=== PATIENT | female | born 1940 | race Caucasian/White ===

== ENCOUNTER → 2023-09-14 12:29 | Outpatient (REF) | payer MEDICARE, SELFPAY | LOC: RAD 12:29 | PROVIDERS: ATTENDING PHYSICIAN Internal Medicine Critical Care Medicine; FAMILY PHYSICIAN Internal Medicine | DX: R91.1 Solitary pulmonary nodule (principal) | CPT/HCPCS: 71046 ==

== ENCOUNTER 2024-09-17 15:57 | Inpatient (IN) | payer MEDICARE, SELFPAY ==
[2024-09-17] VITALS (10 sets, daily range): BP systolic 118–155; BP diastolic 66–105; BMI 20.5; BMI 18.5
--- NOTE | 2024-09-17 10:13 | ED.GENMED ---
History of Present Illness
General
Chief Complaint: Musculo-Skeletal Complaint
Source: patient
Time Seen by Provider: 09/17/24 10:02
History of Present Illness
History of Present Illness:
84yoF with a history of atrial fibrillation, hypertension, hyperlipidemia presenting via EMS for evaluation after a fall. Patient reports getting out of bed around midnight last night to turn off the heating pad. She is not sure what happened but
she fell on her right hip/leg. She denies any head strike or LOC. Patient was unable to get off the floor all night and her neighbor found her today when she was yelling out for help. She currently complains of right hip and thigh pain. She
lives alone in an apartment and works as a history faculty member. She ambulates independently.
Past History
Past History
ED Past Medical History: Arrthythmia (Atrial flutter), Cancer (esophogeal s/p chemom/XRT 2016), COPD, HTN and Hypercholesterolemia
ED Past Surgical History: Other (Endoscopy)
Social History
Tobacco: Smoker
Alcohol: Occasional
Drug: None
Personal: Other
Living: with family
Employment: Retired
Family History
Family History: Hypertension
Phy Exam
Physical Exam
Physical Exam:
Appears uncomfortable, non-toxic
General Physical Exam
General Presentation: well appearing
General age: appears stated age
General Skin: warm and dry
General Habitus: normal
General Mental: alert
ENT Exam
ENT Exam: normocephalic
Pulmonary Exam
Pulmonary Exam: no respiratory distress
Neurological Exam
Neurological Exam: alert
Kira Coma Scale
Eye Opening: Spontaneous
Verbal Response: Oriented
Motor Response: Obeys Commands
GCS Total Score: 15
Musculoskeletal Exam
Musculoskeletal Exam: other (R hip: Swelling noted in thigh with abrasions to lateral hip. Unable to range hip joint. Cap refill < 2 seconds in distal extremity.)
Skin Exam
Skin Exam: normal color and warm/dry
Psychiatric Exam
Psychiatric Exam: normal mood/affect
Course
Orders/Labs/Results
Orders:
Orders
09/17/24 10:02
CR Hip - RT w/wo Pel 2-3 Vw* Urgent
Comment:
Reason For Exam: fall
Include a pelvis x-ray?: Yes
Femur, Right 2 View [CR Femur - Right Min 2 Vw] Urgent
Comment:
Reason For Exam: fall
09/17/24 10:07
Complete Blood Count/With Diff Urgent
Comprehensive Metabolic Panel Urgent
Creatine Phosphokinase Urgent
09/17/24 10:12
CT Cervical Spine W/o Iv Contr Urgent
Comment:
Reason For Exam: unwitnessed fall
CT Head W/o Iv Contrast Urgent
Comment:
Reason For Exam: unwitnessed fall
Acetaminophen 1000MG/100Ml [Ofirmev] 1,000 mg in 100 ml IV ONCE
Acetaminophen IV Indication:: ED Narcotic Naive Pt-ONCE
09/17/24 10:13
CR Chest Single View Urgent
Reason For Exam: fall
09/17/24 13:03
0.9% Sodium Chloride 500 ml [Nss] 500 ml IV BOLUS
09/17/24 13:15
Lidocaine [Lidocaine 4% Patch] 1 patch TOPICAL DAILY
Apply Lidocaine patch(s) to:: right hip
Abnormal Lab Results
09/17/24
10:07
WBC 13.7 H 10^3/uL
(4.8-10.8)
Abs Immat Gran (auto) 0.1 H 10^3/uL
(0-0.05)
Absolute Neuts (auto) 12.5 H 10^3/uL
(1.4-6.5)
Absolute Lymphs (auto) 0.5 L 10^3/uL
(1.2-3.4)
Neutrophils % 91.1 H %
(42.2-75.2)
Lymphocytes % 3.7 L %
(20.5-51.1)
Chloride 108 H mmol/L
(98-107)
Creatinine 0.5 L mg/dL
(0.6-1.0)
Glucose 145 H mg/dl
(70-99)
Creatine Kinase 316 H U/L
(30-135)
09/17/24 10:07
09/17/24 10:07
Vital Signs
Initial and Last Documented VS:
Initial Vital Signs
Temp Pulse Resp BP Pulse Ox
97.3 F 87 18 155/87 97
09/17/24 09:55 09/17/24 09:55 09/17/24 09:55 09/17/24 09:55 09/17/24 09:55
Last Documented Vital Signs
Temp Pulse Resp BP Pulse Ox
98.2 F 92 16 148/83 98
09/17/24 16:00 09/17/24 16:00 09/17/24 16:00 09/17/24 16:00 09/17/24 16:00
MDM/Problems Addressed
Differential Diagnosis Includes:
84yoF here with R hip/thigh pain after a fall in the middle of the night. She was unable to get off the floor and was on the ground for about 8 hours before being found. Swelling noted in R thigh. RLE is neurovascularly intact. Differential
diagnosis includes but is not limited to: Fracture, dislocation, soft tissue injury, rhabdomyolysis
Initial ED plan: Check CBC, CMP, CK, R hip/femur x-rays, and CT head and cervical spine. IV Tylenol for pain (patient declines analgesics).
*Critical Care Note
Total Time (30-74mins, 75-104mins- exclusive of procedures): Not Applicable
Update Note
Update Note:
X-rays confirm an intertrochanteric fracture. Orthopedics notified and patient admitted for further management.
ED Attending Note
-
Portions of this chart may have been created with voice recognition software.� Occasional wrong word or��sound alike� substitutions may have occurred due to the inherent limitations of voice recognition software.
Discharge Plan
Departure
Patient Disposition: Admit
Date of Disposition: 09/17/24
Time of Disposition: 12:50
Presentation/result/management discussed w/ accepting MD/DO: Hospitalist
Discharge Problem:
Closed fracture of right hip
Interventions
Interventions:
*Risk Screen - Suicide Last Done: 09/17/24 09:55
*General Assessment Last Done: 09/17/24 09:55
*Neglect/Abuse Screening Last Done: 09/17/24 09:55
*ED COVID-19 Vaccine History Last Done: 09/17/24 10:03
*Nursing Disposition Last Done: 09/17/24 16:04
ED-Musculoskeletal Assessment Last Done: 09/17/24 10:10
ED- Neurological Assessment Last Done: 09/17/24 10:10
ED-Skin Assessment Last Done: 09/17/24 10:10
Discharge Date and Time
Discharge Date/Time: 09/17/24 15:00
[2024-09-17] MEDS: OFIRMEV 100 IV (10:18)
[2024-09-17 10:28] LABS: % Basophils 0.2 % (0-2); % Eosinophils 0.1 % (0-6); % Immature Granulocytes 0.4 % (0-0.5); % Lymphocytes 3.7 % (20.5-51.1); % Monocytes 4.5 % (1.7-9.3); % Neutrophils 91.1 % (42.2-75.2); Absolute Immature Granulocytes 0.1 10^3/uL (0-0.05); Absolute Lymphocytes 0.5 10^3/uL (1.2-3.4); Absolute Monocytes 0.6 10^3/uL (0.1-0.6); Absolute Neutrophils 12.5 10^3/uL (1.4-6.5); Hematocrit 38.8 % (37.0-47.0); Hemoglobin 13.3 g/dL (12.0-16.0); Mean Corp Hgb Conc. 34.3 g/dL (33.0-37.0); Mean Corpuscular Hgb 30.9 pg (27.0-31.0); Mean Platelet Volume 8.8 fL (7.4-10.4); Nucleated Red Blood Cells % 0 %; Platelet Count 239 10^3/uL (130-400); Red Blood Cell Count 4.31 10^6/uL (4.20-5.40); Red Cell Dist. Width 13.1 % (11.5-14.5); White Blood Cell Count 13.7 10^3/uL (4.8-10.8)
[2024-09-17 10:46] LABS: ALT (SGPT) 25 U/L (0-35); AST (SGOT) 31 U/L (14-36); Albumin 4.3 g/dl (3.5-5.0); Alkaline Phosphatase 85 U/L (38-126); Blood Urea Nitrogen 16 mg/dl (7-17); Calcium 9.2 mg/dl (8.4-10.2); Carbon Dioxide 28 mmol/L (22-30); Chloride 108 mmol/L (98-107); Creatine Phosphokinase 316 U/L (30-135); Estimated Creatinine Clearance 61 ml/min; Glucose 145 mg/dl (70-99); Potassium 4.3 mmol/L (3.5-5.1); Sodium 140 mmol/L (135-145); Total Bilirubin 0.7 mg/dl (0.2-1.3); Total Protein 7.1 g/dl (6.3-8.2); eGFR > 60.00
--- NOTE | 2024-09-17 15:45 | PTCARENOTE ---
Patient admitted from ED during [facility] downtime. VSS. Patient c/o of R hip pain. Pt only willing to take Tylenol with codeine. made aware. Medication administered. See JUN. Patient arrived from ED with R hip lidocaine patch. Call taylor within
reach. Patient NPO at [place] for ORIF
--- NOTE | 2024-09-17 15:57 | HPS.HSE ---
Family Physician
-
Family Physician: Lucie Casiano
Chief Complaint
-
Right Hip Pain
History of Present Illness
Ms. Salvador Pathak is a 84 yo woman with hx afib on Eliquis, essential HTN, HLD presents to the ER post fall.
Patient went to confirm her heating pack was unplugged in middle of the night.� She states she fell and landed on her right hip.� She reports she eats dinner in that area and may have slipped on something that spilled.� She was on the ground for 8
hours, yelled out and neighbor eventually heard her.� No chest pain or palpitations preceding event.� She did not hit her head.� Had resulting pain in right hip.
No recent fevers/chills.� No chest pain.� She has chronic SOB from COPD which his improved on home inhalers.� No abdominal pain.� No nausea/vomiting/diarrhea.� She is eating and drinking OK, has not yet eaten today and is hungry.
She takes a lower dose of Eliquis at night (self-prescribed) because she had in issue with bruising.� She plans to follow up with her fur dry cleaner.�
Medical History
Past Medical History
Past Medical History: Reports Arrhythmia (atrial fibrillation), HTN and Hypercholesterolemia
Past Surgical History: Reports Other
Social History
Tobacco: Former Smoker
Alcohol: None
Family History
Family History: Not pertinent
Allergies / Home Medications
Allergies reflects when Allergies were last updated in [facility].
Home Medications with original date entered in [facility]
Allergy/Medication List:
Allergies
Allergy/AdvReac Type Severity Reaction Status Date / Time
hydromorphone (From Dilaudid) Allergy Unknown Verified 09/17/24 09:54
Home Medications
lorazepam 0.5 mg tablet 0.5 mg PO BIDPRN PRN anxiety 09/10/16
apixaban 2.5 mg tablet (Eliquis) 1.25 mg PO QPM 09/17/24
apixaban 2.5 mg tablet (Eliquis) 2.5 mg PO DAILY 09/17/24
fluticasone propionate 115 mcg-salmeterol 21 mcg/actuation HFA inhaler (Advair HFA) 2 puff inhalation R BID 09/17/24
magnesium oxide 400 mg PO QPM 09/17/24
temazepam 30 mg capsule 30 mg PO HS 09/17/24
verapamil 40 mg tablet 40 mg PO BID 09/17/24
vitamins A,C,I-vpam-qpwuhy 2,148 mcg-113 mg-45 mg-17.4 mg tablet (PreserVision AREDS) 1 tab PO DAILY 09/17/24
Review of Systems
-
History Source: Patient
A 12 point ROS was completed and negative except as noted: Yes
Physical Exam
Vital Signs
Vital Signs
Temp Pulse Resp BP Pulse Ox
97.3 F 79 17 122/78 96
09/17/24 09:55 09/17/24 10:30 09/17/24 10:30 09/17/24 12:00 09/17/24 11:15
Physical Exam
General: No Apparent Distress
HEENT: PERRLA
Respiratory: Clear; No Wheezes
Cardiac: S1/S2 and Regular Rhythm
GI: Soft, Non Tender and Non Distended
Musculoskeletal: No Edema and Other (mild swelling/tenderness along right hip/groin)
Skin: Warm and Dry; No Rash
Neuro: AO x 3
Psych: Calm
Laboratory Results
-
09/17/24 10:07
09/17/24 10:07
Laboratory Results
Total Bilirubin 0.7 mg/dl (0.2-1.3) 09/17/24 10:07
AST 31 U/L (14-36) 09/17/24 10:07
ALT 25 U/L (0-35) 09/17/24 10:07
Alkaline Phosphatase 85 U/L (38-126) 09/17/24 10:07
Data Reviewed
-
Diagnostic Radiology: Report Reviewed by me
Lab Data: Labs Reviewed by me
Impression/Plan
-
IMAGING:
Hip X-Ray:
IMPRESSION: Comminuted angulated acute intertrochanteric right femoral fracture as above.
Cervical Spine CT:
IMPRESSION:
Degenerative changes.
No findings to suggest recent cervical spine fracture.
HEAD CT
IMPRESSION:
No acute intracranial abnormalities.
Findings again seen compatible with diffuse cortical atrophy with nonspecific white matter changes as described above.
Ms. Salvador Pathak is a 84 yo woman with hx afib on Eliquis, essential HTN, HLD presents to the ER post fall found to have right hip fracture.
Right Hip Fracture
-����� Admit to med/surg
-����� Patient has pain relief with 1G Tylenol; will continue 650mg PO q4 hours standing.� She reports a bad reaction to opiates in past (anxiety)
-����� Lidocaine Patch
-����� Regular diet, NPO after MN for OR planned for tomorrow (discussed with Dr. Elkins)
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
-����� SCD�s for DVT PPx pre-op
-����� Ordoñez karen-op risk score = 0.2%; benefits of surgery outweigh risks, patient medically optimized for surgery
-�����
Atrial Flutter, paroxysmal
-����� Currently in NSR
-����� Patient self-decreased Eliquis dosing in evening given bruising.� Education provided on importance of stroke prevention and she is willing to take 2.5mg dosing post-op for DVT prevention
-����� Hold Eliquis pre-op, resume when cleared by ortho
-����� CARRY OUT CLERK AND SHELF STOCKER Verapamil
-�����
Anxiety
-CARRY OUT CLERK AND SHELF STOCKER Temazepam qhs
-CARRY OUT CLERK AND SHELF STOCKER Lorazepam PRN
HTN
-CARRY OUT CLERK AND SHELF STOCKER Verapamil
DVT PPx: SCD
DNR � discussed on admission
--- NOTE | 2024-09-17 16:03 | DOWNTIME ---
There was a [employer] Downtime on 09/17/2024 from 1230 to 09/17/2024 at 1550. Downtime documentation of patient's care, including medication administrations, has been reconciled in the electronic record per guidelines. Refer to the
patient's paper chart under the miscellaneous tab to see printed paper medication records and downtime forms.
[2024-09-17] MEDS: TYLENOL 325 MG PO (16:23)
[2024-09-17] MEDS: CODEINE 15 MG PO (16:23)
[2024-09-17] MEDS: LIDOCAINE 4% PATCH 1 PATCH TOPICAL (16:26)
[2024-09-17] MEDS: COLACE 100 MG PO (20:13)
[2024-09-17] MEDS: SENOKOT 17.2 MG PO (20:13)
[2024-09-17] MEDS: ISOPTIN 40 MG PO (20:13)
[2024-09-17] MEDS: NON-FORMULARY ITEM 1 UNIT INH (20:16)
[2024-09-17] MEDS: TYLENOL #3 1 TABLET PO (20:20)
[2024-09-17] MEDS: RESTORIL 30 MG PO (21:59)
[2024-09-17] MEDS: ROXICODONE 5 MG PO (22:08)
[2024-09-18] VITALS (13 sets, daily range): BP systolic 105–130; BP diastolic 52–75
[2024-09-18] MEDS: TYLENOL #3 1 TABLET PO ×2 (06:02→10:56)
[2024-09-18] MEDS: NON-FORMULARY ITEM 1 UNIT INH (07:22)
[2024-09-18 07:29] LABS: Hematocrit 33.7 % (37.0-47.0); Hemoglobin 11.4 g/dL (12.0-16.0); Mean Corp Hgb Conc. 33.8 g/dL (33.0-37.0); Mean Corpuscular Hgb 30.9 pg (27.0-31.0); Mean Corpuscular Volume 91.3 fL (81.0-99.0); Mean Platelet Volume 9.5 fL (7.4-10.4); Platelet Count 216 10^3/uL (130-400); Red Blood Cell Count 3.69 10^6/uL (4.20-5.40); Red Cell Dist. Width 13.3 % (11.5-14.5); White Blood Cell Count 8.3 10^3/uL (4.8-10.8)
--- NOTE | 2024-09-18 07:52 | W.PN.UPDATE ---
Addendum entered and electronically signed by Pedro Elkins MD 09/18/24 16:10:
I evaluated the patient at bedside and agree with consultation note dated 1550. 84-year-old female who lives independently as a community ambulator without an assist device sustained a fall 1 day ago in her apartment. She was down for about 8
hours until a neighbor helped her. She had right thigh pain and difficulty weightbearing. She was brought to the emergency department where she was noted to have a proximal femur fracture. She denies hip pain or thigh pain prior to the fall. On
exam, the patient was in bed awake and alert, anxious about surgery. Skin was intact with some ecchymosis medially. Motor and sensation intact distally.
I discussed with the patient treatment options for the right hip. We discussed right hip fracture ORIF with cephalomedullary nail. We discussed the recovery process and follow-up timeline. Shared decision was to proceed with right hip fracture
ORIF. All questions were answered.
Original Note:
Update Note
Progress Note Update
For orthopedic consult dictated:
Dx: Right hip intertrochanteric fracture
Plan: Patient is scheduled to undergo open reduction internal fixation right intertrochanteric fracture later this afternoon. Last dose of Eliquis July 17, 2024 in the evening. She will remain n.p.o. and Ancef on-call to the operating room.
Surgical and blood consent signed by patient. Surgical location marked. Reviewed surgery, risk and potential complications as well as postoperative course with the patient and her daughter (Lucie Westbrook). All questions were answered. On the
right hip x-ray I am concerned she might have fracture just superior to the acetabulum so I am going to order CT scan to rule out.
Review CT pelvis-09/18/24 1030amCT scan of the pelvis was performed this morning. Comminuted mildly displaced intertrochanteric fracture proximal humerus noted with hematoma. L5 compression fracture noted. CT scan of the pelvis was performed this
morning. Comminuted mildly displaced intertrochanteric fracture proximal humerus noted with hematoma. L5 compression fracture noted. No pelvis fracture identified on study.
[2024-09-18 08:15] LABS: Blood Urea Nitrogen 12 mg/dl (7-17); Calcium 8.9 mg/dl (8.4-10.2); Carbon Dioxide 25 mmol/L (22-30); Chloride 108 mmol/L (98-107); Creatine Phosphokinase 168 U/L (30-135); Estimated Creatinine Clearance 56 ml/min; Glucose 130 mg/dl (70-99); Potassium 4.1 mmol/L (3.5-5.1); Sodium 138 mmol/L (135-145); eGFR > 60.00
[2024-09-18] MEDS: ISOPTIN 40 MG PO ×2 (08:29→20:20)
[2024-09-18] MEDS: LIDOCAINE 4% PATCH 1 PATCH TOPICAL (08:30)
[2024-09-18] MEDS: COLACE PO ×2 (08:32→20:18)
[2024-09-18] MEDS: SENOKOT PO ×2 (08:32→20:19)
--- NOTE | 2024-09-18 09:25 | W.PN.HOSP.TC ---
Today's Communication/Plan
-
.
Assessment / Plan
Assessment / Plan
Physical Exam
General: No Apparent Distress
HEENT: PERRLA
Respiratory: Clear; No Wheezes
Cardiac: S1/S2 and Regular Rhythm
GI: Soft, Non Tender and Non Distended
Musculoskeletal: No Edema and Other (mild swelling/tenderness along right hip/groin)
Skin: Warm and Dry; No Rash
Neuro: AO x 3
Psych: Calm
Right Hip Fracture
-����� Patient has pain relief with 1G Tylenol; will continue 650mg PO q4 hours standing.� She reports a bad reaction to opiates in past (anxiety)
-����� Lidocaine Patch
-����� Regular diet, NPO after MN for OR planned for tomorrow (discussed with Dr. Elkins)
-����� Hold MANAGER CRISIS Eliquis
-����� SCD�s for DVT PPx pre-op
-����� Ordoñez karen-op risk score = 0.2%; benefits of surgery outweigh risks, patient medically optimized for surgery
-�����
# leukocytosis, reactive
Afebrile
Resolved
Atrial Flutter, paroxysmal
-����� Currently in NSR
-����� Patient self-decreased Eliquis dosing in evening given bruising.� Education provided on importance of stroke prevention and she is willing to take 2.5mg dosing post-op for DVT prevention
-����� Hold Eliquis pre-op, resume when cleared by ortho
-����� MANAGER CRISIS Verapamil
-�����
Anxiety
seems anxious and worried about surgery/anesthesia
-MANAGER CRISIS Temazepam qhs
-MANAGER CRISIS Lorazepam PRN
HTN
-MANAGER CRISIS Verapamil
DVT PPx: SCD
code : pt would like to be full code
Total time spent to see the patient, examine the patient, review data and lab results, discuss treatment plan with patient and nursing staff around 55 minutes
Anticipated Discharge: > 48 hours
Subjective/Interval History
-
Date of Service: September 18, 2024
No chest pain
No sob
Objective Data
-
Labs:
Laboratory Results
09/18/24
06:23
WBC 8.3
Hgb 11.4 L
Hct 33.7 L
Plt Count 216
Sodium 138
Potassium 4.1
Chloride 108 H
Carbon Dioxide 25
BUN 12
Creatinine 0.6
Glucose 130 H
Calcium 8.9
Vital Signs:
Vital Signs
Temp Pulse Resp BP Pulse Ox
98.1 F 73 16 130/63 96
09/18/24 07:30 09/18/24 07:32 09/18/24 07:32 09/18/24 08:29 09/18/24 07:32
I&O
09/17/24 09/18/24 09/19/24
06:59 06:59 06:59
Intake Total 980 / 980
Balance 980 / 980
--- NOTE | 2024-09-18 12:11 | CM ---
CM following re: discharge planning.
Reviewed pt's chart, met with pt and daughter Lucie at bedside.
Pt is an 84 year old female, admitted with primary dx of R hip fx. OR today
Pt reports she lives alone in an apartment 1st floor, 8 steps up and 5 steps down, has 2 supportive children: daughter Lucie lives locally and son lives in [place]. Pt described herself as independent in all areas [employer], drives, works 5 days per week.
Both pt and her daughter are aware that pt will need a short term rehab and they requested [facility]. CM will make a referral to [facility] after post operation and PT/OT evaluations.
PCP: Lucie Perry
Pharmacy: [facility]
D/C plan: [facility] for a short term rehab.
CM will follow to assist pt with discharge plan updates as hospitalization progresses
--- NOTE | 2024-09-18 14:51 | PN.CDI ---
Addendum entered and electronically signed by Angelique Murrell MD 09/18/24 15:37:
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
Original Note:
CDI
- -
CDI:
Physician Documentation Request
Admit Date: 09/17/24 15:57
Dear Doctor Handy,
Please review the following and provide your response in the progress notes.
Clinical Indicators:
09/02/2014 BONE DENSITOMETRY
#...Indication: Patient is post-menopausal.
#IMPRESSION: Osteoporosis. No statistically significant interval change since the prior exam.
H+P, 09/17
#...went to confirm her heating pack was unplugged in middle of the night.�
#...She states she fell and landed on her right hip.�
Ortho, PN, 09/18
#Dx:Right hip intertrochanteric fracture
#...Review CT pelvis-09/18/24 1030amCT scan of the pelvis
#... Comminuted mildly displaced intertrochanteric fracture proximal humerus
#...noted with hematoma.
#...L5 compression fracture noted.
#...No pelvis fracture identified on study.
PN, 09/18
#Right Hip Fracture
Based on the above and your clinical assessment, please clarify the following regarding the etiology of the right hip fracture AND L5 compression fracture:
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
Traumatic fracture only
Other (please specify)
Type
Age-related
Drug induced (specify drug)
Idiopathic
Osteoporosis of disuse
Due to post surgical malabsorption
Post traumatic
Post oophorectomy osteoporosis
Use of terms such as suspected, likely, concern for, or probable (associated with a specific diagnosis that is being evaluated, monitored, or treated as if it exists) are acceptable and can be coded in the inpatient setting, when documented at the
time of discharge.
Thank you,
Geri Bee RN BSN CCDS
CDI Specialist
Please contact via tiger text
Please use your independent medical judgment in providing your response.
--- NOTE | 2024-09-18 15:14 | OR.RPT ---
Operative Report
Operative Report
Orthopaedic Surgery Operative Note
DATE OF OPERATION: 09/18/2024
PREOPERATIVE DIAGNOSIS: Intertrochanteric Hip Fracture, Right
POSTOPERATIVE DIAGNOSIS: Same
OPERATION PERFORMED: Right intertrochanteric hip fracture reduction and fixation with cephalomedulary nail
SURGEON: Pedro Elkins MD
PARKING STATION ATTENDANT: NA
ANESTHESIA: General
COMPLICATIONS: None.
ESTIMATED BLOOD LOSS: 50 mL.
DRAINS: None
SPECIMEN: None
IMPLANTS:
[place] Gamma Cephalomeduallary nail; 380 mm by 10 mm
He lag screw, 90 mm.
5.0 mm distal interlocking screw x1
INDICATIONS FOR PROCEDURE
84F presented to the ED after a fall in her home Xrays showed displaced intertrochanteric hip fracture. I discussed treatment options with the patient including nonoperative and operative treatments. We reviewed the natural history of the problem,
as well as the risks, benefits, and alternatives of various treatment options. Shared decision was to proceed with surgical treatment. The patient understood the risks including, but were not limited to, bleeding, infection, failure to relieve pain,
more pain than preop, damage to blood vessels and nerves, need for reoperation, mechanical failure of the implants, wound healing problems, stiffness, instability, blood clot, pulmonary embolism, myocardial infarction, pneumonia, arrhythmia, CVA,
and . All questions were answered, and informed consent was obtained.
PROCEDURE IN DETAIL: The patient was identified in the preoperative holding area. The operative limb was identified as the operative site and marked with my initials. The patient was transferred to the operating room. General anesthesia was
performed. The patient was transferred to the [facility] operative table. IV antibiotics and tranexamic acid were given. All bony prominences were well padded. The operative limb was prepped and draped in the usual sterile fashion.
We performed a surgical time-out. A 1.6mm (0.65'') last wire was placed in the distal femur, and traction bow was applied. This was well padded over the knee. 15lbs of skeletal traction was applied. The fracture was reduced with the aid of
flouroscopy. The guide wire was placed over the medial aspect of the tip of the greater trochanter. The guide wire was advanced and checked for appropriate position on AP and lateral. The pin guide wire was advanced to the level of the lesser
trochanter. Incision was made about the wire. The opening reamer was used to open the starting point over the guide wire. A ball-tipped guide wire was advanced to the distal femur. Length was measured to be 395mm. The femoral canal was sequentially
reamed with the fracture reduced starting with a 9.5mm reamer up to 11.5mm. The nail was then inserted over the guidewire down to the appropriate depth. The guide wire was removed. The targeting guide was assembled, and a lateral incision was made
for lag screw placement. A guide pin was advanced into the femoral head. Position was checked on AP and lateral. The length was measured to be 97.5mm. The drill was set to the appropriate depth, and the lag screw path was drilled over the guide
wire. The lag screw was then inserted into the femoral head just distal to the subchondral bone. The locking screw was then placed into the top of the nail. Skeletal traction was removed, and a single distal interlocking screw was placed into the
static hole with perfect kashia technique. Final fluoroscopy shots were performed which showed appropriate position and length of the implant and anatomic reduction of the fracture.
The incisions were copiously irrigated with 3L of normal saline. The deep fascial layers were closed with 0 PDS. The dermal layer closed with 2-0 PDS running. The skin was closed with 3-0 monocryl. Skin glue was applied as well as sterile dressings.
The patient was awoken from anesthesia without complication.
The patient awoke from anesthesia without difficulty. Sponge and instrument counts were correct x2 at the end of the case.
I was present and participated in the entire procedure. The patient was sent to the recovery room in stable condition.
Post operative plan:
WBAT
PT/OT
Pain control
Delirium prevention
ABX: Ancef x24 hours
DVT: Resume Eliquis daily
Dieter Elkins MD
--- NOTE | 2024-09-18 17:32 | PTCARENOTE ---
pt received to 2S room 2116 at 1630 from PACU. pt oriented to room , call taylor and plan of care with verbalized understanding. Right hip and knee dressings clean and dry. ice in place, neurovascular check to SHAYAN HIGUERA. pt c/o feeling sleepy post
procedure. care ongoing.
[2024-09-18] MEDS: ZOFRAN 4 MG IV (19:31)
[2024-09-18] MEDS: NON-FORMULARY ITEM INH (20:18)
[2024-09-18] MEDS: ANCEF 5 IV (20:20)
[2024-09-18] MEDS: COMPAZINE 5 MG IV (21:21)
[2024-09-18] MEDS: RESTORIL 30 MG PO (22:30)
[2024-09-19] VITALS (7 sets, daily range): BP systolic 84–141; BP diastolic 52–75; PULSE 82–85; O2SAT 93
[2024-09-19] MEDS: ANCEF 5 IV (03:37)
--- NOTE | 2024-09-19 06:13 | W.PN.ORTHO ---
Today's Communication / Plan
-
84F POD 1 R CMN w/ Dr. Elkins
WBAT
PT/OT/DC planning
Resume Eliquis for DVT ppx
Postop abx as ordered
Diet per primary
Pain regimen in place
F/u 2 weeks from DOS for wound check
Assessment
.
Distal Motor Intact: Yes
Dressing:
Clean, dry and intact.
Plan
.
Surgery / Date: 09/18/24 R hip CMN w/ Dr. Elkins
Activity:
Out of bed.
PT/OT
Subjective
.
.:
Patient resting comfortably.
Vital Signs and Labs
.
Vital Signs and Labs:
Temp Pulse Resp BP Pulse Ox
97.8 F 75 17 110/52 99
09/19/24 03:20 09/19/24 03:20 09/19/24 03:20 09/19/24 03:20 09/19/24 03:20
[2024-09-19 07:45] LABS: Hemoglobin 10.1 g/dL (12.0-16.0); Mean Corp Hgb Conc. 33.7 g/dL (33.0-37.0); Mean Corpuscular Hgb 31.1 pg (27.0-31.0); Mean Corpuscular Volume 92.3 fL (81.0-99.0); Mean Platelet Volume 9.6 fL (7.4-10.4); Platelet Count 194 10^3/uL (130-400); Red Blood Cell Count 3.25 10^6/uL (4.20-5.40); Red Cell Dist. Width 13.5 % (11.5-14.5); White Blood Cell Count 8.4 10^3/uL (4.8-10.8)
[2024-09-19] MEDS: NON-FORMULARY ITEM 1 UNIT INH ×2 (08:01→18:07)
[2024-09-19] MEDS: ELIQUIS 2.5 MG PO ×2 (08:28→20:13)
[2024-09-19] MEDS: ISOPTIN 40 MG PO ×2 (08:28→20:13)
[2024-09-19] MEDS: LIDOCAINE 4% PATCH 1 PATCH TOPICAL (08:29)
[2024-09-19 08:59] LABS: Blood Urea Nitrogen 19 mg/dl (7-17); Calcium 8.3 mg/dl (8.4-10.2); Carbon Dioxide 26 mmol/L (22-30); Chloride 105 mmol/L (98-107); Estimated Creatinine Clearance 56 ml/min; Glucose 134 mg/dl (70-99); Potassium 4.5 mmol/L (3.5-5.1); Sodium 136 mmol/L (135-145); eGFR > 60.00
--- NOTE | 2024-09-19 09:09 | W.PN.HOSP.TC ---
Today's Communication/Plan
-
PT/OT
Assessment / Plan
Assessment / Plan
Physical Exam
General: No Apparent Distress
HEENT: PERRLA
Respiratory: Clear; No Wheezes
Cardiac: S1/S2 and Regular Rhythm
GI: Soft, Non Tender and Non Distended
Musculoskeletal: No Edema and clean dressing right thigh
Skin: Warm and Dry; No Rash
Neuro: AO x 3
Psych: Calm
Right Hip Fracture
s/p Right intertrochanteric hip fracture reduction and fixation with cephalomedullary nail by Dr Elkins on 09/18, no complications reported.
pt wants Tylenol with codeine and not Tylenol alone
-����� Regular diet,
-���� Eliquis
- Appreciate ortho help
-�����
# leukocytosis, reactive
Afebrile
Resolved
# Mild acute blood loss anemia post op
#Atrial Flutter, paroxysmal
-����� Currently in NSR
-����� Patient self-decreased Eliquis dosing in evening given bruising.� Education provided on importance of stroke prevention and she is willing to take 2.5mg dosing post-op for DVT prevention
-����� Hold Eliquis pre-op, resume when cleared by ortho
-����� RELIEF MAN Verapamil
-�����
#Anxiety
-RELIEF MAN Temazepam qhs
-RELIEF MAN Lorazepam PRN
# essential HTN
-RELIEF MAN Verapamil
DVT PPx: Eliquis
code : pt would like to be full code
Total time spent to see the patient, examine the patient, review data and lab results, discuss treatment plan with patient and nursing staff around 55 minutes
Anticipated Discharge: 24 - 48 hours
Subjective/Interval History
-
Date of Service: September 19, 2024
She wants Tylenol with codeine
No chest pain
No sob
Objective Data
-
Labs:
Laboratory Results
09/19/24
07:13
WBC 8.4
Hgb 10.1 L
Hct 30.0 L
Plt Count 194
Sodium 136
Potassium 4.5
Chloride 105
Carbon Dioxide 26
BUN 19 H
Creatinine 0.6
Glucose 134 H
Calcium 8.3 L
Vital Signs:
Vital Signs
Temp Pulse Resp BP Pulse Ox
98.5 F 72 16 128/75 96
09/19/24 07:25 09/19/24 08:08 09/19/24 08:08 09/19/24 07:25 09/19/24 08:08
I&O
09/18/24 09/19/24 09/20/24
06:59 06:59 06:59
Intake Total 980 / 980 125 / 125
Balance 980 / 980 125 / 125
[2024-09-19] MEDS: TYLENOL #3 1 TABLET PO ×2 (09:35→21:28)
--- NOTE | 2024-09-19 15:13 | CM ---
R hip fracture and repair on 09/18/24. Discharge POC: Therapy recommendation for SNF. [facility] accepted pending bed availability.
[2024-09-19] MEDS: RESTORIL 30 MG PO (22:34)
[2024-09-20 07:45] VITALS: BP 123/71
[2024-09-20] MEDS: NON-FORMULARY ITEM 1 UNIT INH ×2 (08:26→18:18)
--- NOTE | 2024-09-20 08:56 | W.PN.HOSP.TC ---
Today's Communication/Plan
-
dc planning
Assessment / Plan
Assessment / Plan
Physical Exam
General: No Apparent Distress
HEENT: PERRLA
Respiratory: Clear; No Wheezes
Cardiac: S1/S2 and Regular Rhythm
GI: Soft, Non Tender and Non Distended
Musculoskeletal: No Edema and clean dressing right thigh
Skin: Warm and Dry; No Rash
Neuro: AO x 3
Psych: Calm
Right Hip Fracture
s/p Right intertrochanteric hip fracture reduction and fixation with cephalomedullary nail by Dr Elkins on 09/18, no complications reported.
pt wants Tylenol with codeine and not Tylenol alone
-����� Regular diet,
-���� Eliquis
- WBAT RLE with use of walker for ambulatory assistance.
- Appreciate ortho help
-�����
# leukocytosis, reactive
Afebrile
Resolved
# Mild acute blood loss anemia post op
# constipation
pt wants to try magnesium supplement
#Atrial Flutter, paroxysmal
-����� Currently in NSR
-����� Patient self-decreased Eliquis dosing in evening given bruising.� Education provided on importance of stroke prevention and she is willing to take 2.5mg dosing post-op for DVT prevention
-����� resume Eliquis
-����� BUSINESS DEVELOPMENT CONSULTANT Verapamil
-�����
#Anxiety
-BUSINESS DEVELOPMENT CONSULTANT Temazepam qhs
-BUSINESS DEVELOPMENT CONSULTANT Lorazepam PRN
# essential HTN
-BUSINESS DEVELOPMENT CONSULTANT Verapamil
DVT PPx: Eliquis
code : pt would like to be full code
Total time spent to see the patient, examine the patient, review data and lab results, discuss treatment plan with patient and nursing staff around 55 minutes
Anticipated Discharge: Today
Subjective/Interval History
-
Date of Service: September 20, 2024
No chest pain
No sob
No abdominal pain
Objective Data
-
Vital Signs:
Vital Signs
Temp Pulse Resp BP Pulse Ox
98.4 F 82 16 141/72 92
09/19/24 23:33 09/20/24 08:26 09/20/24 08:26 09/19/24 23:33 09/20/24 08:26
I&O
09/19/24 09/20/24 09/21/24
06:59 06:59 06:59
Intake Total 125 / 125
Balance 125 / 125
--- NOTE | 2024-09-20 09:00 | W.PN.ORTHO ---
Today's Communication / Plan
-
84-year-old female POD #2 Right Hip CMN 09/18/[address] Elkins.
- Appreciate the Hospitalist team, continue Tx.
- WBAT RLE with use of walker for ambulatory assistance.
- PT/OT.
- Resume Eliquis for DVT prophylaxis.
- Pain control per primary team. Ice therapy for edema control.
- Case management regarding D/C planning.
- Orthopedic surgery will sign off at this time. Please reengage with any further questions or concerns. F/U 2 weeks from DOS for wound check. Mepilex dressings to remain intact. D/C information updated.
Assessment
.
Distal Motor Intact: Yes
Dressing:
Mepilex dressing x 2 CDI.
Able to plantarflex and dorsiflex right ankle.
Thigh is soft and compressible. Calf is soft and nontender to palpation.
Assessment:
POD #2 right hip cephalomedullary nail with Dr. Elkins 09/18/2024.
Plan
.
Surgery / Date: 09/18/24 R hip CMN w/ Dr. Elkins
DVT Prophylaxis: Other (Eliquis)
Activity:
Out of bed.
PT/OT.
WBAT RLE with use of walker for ambulatory assistance.
Discharge Plan: Other (Appreciate CM. )
Subjective
.
.:
Patient resting comfortably in bed. Overall, reports that she is doing well.
Vital Signs and Labs
.
Vital Signs and Labs:
Lab Results
09/19/24 07:13
09/19/24 07:13
Temp Pulse Resp BP Pulse Ox
98.4 F 82 16 141/72 92
09/19/24 23:33 09/20/24 08:26 09/20/24 08:26 09/19/24 23:33 09/20/24 08:26
[2024-09-20] MEDS: LIDOCAINE 4% PATCH 1 PATCH TOPICAL (10:40)
[2024-09-20] MEDS: ISOPTIN 40 MG PO ×2 (10:42→20:19)
[2024-09-20] MEDS: ELIQUIS 2.5 MG PO ×2 (10:42→20:19)
[2024-09-20] MEDS: MAGNESIUM OXIDE 500 MG PO (10:43)
[2024-09-20] MEDS: TYLENOL #3 1 TABLET PO ×3 (10:48→22:45)
[2024-09-20 13:18] VITALS: BP 127/93
[2024-09-20 15:15] VITALS: BP 129/80
[2024-09-20] MEDS: RESTORIL 30 MG PO (22:46)
[2024-09-20 23:35] VITALS: BP 145/79
[2024-09-21 07:15] VITALS: BP 123/78
[2024-09-21] MEDS: NON-FORMULARY ITEM 1 UNIT INH (07:48)
[2024-09-21] MEDS: TYLENOL #3 1 TABLET PO ×3 (07:54→20:22)
[2024-09-21] MEDS: ISOPTIN 40 MG PO ×2 (07:54→20:23)
[2024-09-21] MEDS: LIDOCAINE 4% PATCH 1 PATCH TOPICAL (07:55)
[2024-09-21] MEDS: ELIQUIS 2.5 MG PO ×2 (08:00→20:22)
--- NOTE | 2024-09-21 08:14 | W.PN.HOSP.TC ---
Today's Communication/Plan
-
dc
Assessment / Plan
Assessment / Plan
Physical Exam
General: No Apparent Distress
HEENT: PERRLA
Respiratory: Clear; No Wheezes
Cardiac: S1/S2 and Regular Rhythm
GI: Soft, Non Tender and Non Distended
Musculoskeletal: No Edema and clean dressing right thigh
Skin: Warm and Dry; No Rash
Neuro: AO x 3
Psych: Calm
Right Hip Fracture
s/p Right intertrochanteric hip fracture reduction and fixation with cephalomedullary nail by Dr Elkins on 09/18, no complications reported.
pt wants Tylenol with codeine and not Tylenol alone
-����� Regular diet,
-���� Eliquis
- WBAT RLE with use of walker for ambulatory assistance.
- Appreciate ortho help
-�����
# leukocytosis, reactive
Afebrile
Resolved
# Mild acute blood loss anemia post op
# constipation
pt wants to try magnesium supplement but did not help
she is agreeable to try Milk of magnesia
#Atrial Flutter, paroxysmal
-����� Currently in NSR
-����� Patient self-decreased Eliquis dosing in evening given bruising.� Education provided on importance of stroke prevention and she is willing to take 2.5mg dosing post-op for DVT prevention
-����� resume Eliquis
-����� MANUFACTURING QUALITY TECHNICIAN Verapamil
-�����
#Anxiety
-MANUFACTURING QUALITY TECHNICIAN Temazepam qhs
-MANUFACTURING QUALITY TECHNICIAN Lorazepam PRN
# essential HTN
-MANUFACTURING QUALITY TECHNICIAN Verapamil
DVT PPx: Eliquis
code : pt would like to be full code
Total time spent to see the patient, examine the patient, review data and lab results, discuss treatment plan with patient and nursing staff around 55 minutes
Anticipated Discharge: Today
Subjective/Interval History
-
Date of Service: September 21, 2024
No chest pain
No sob
no fevers
still constipation
Objective Data
-
Vital Signs:
Vital Signs
Temp Pulse Resp BP Pulse Ox
98 F 85 16 123/78 95
09/21/24 07:15 09/21/24 07:53 09/21/24 07:53 09/21/24 07:15 09/21/24 07:53
I&O
09/20/24 09/21/24 09/22/24
06:59 06:59 06:59
Intake Total 472 / 472
Output Total 100 / 100
Balance 372 / 372
--- NOTE | 2024-09-21 08:40 | CM ---
Addendum entered by Rosy Paerdes 09/21/24 10:44:
Follow up call placed to [facility] regarding placement- pending return call to discuss further.
Original Note:
CM noted DC order and reviewed chart. Message out to [facility] to confirm bed offer for dc today. Requested OT eval as pt will require an [employer] insurance auth. PA and Nursing both are aware of the above. Anticipate dc within
24-48hrs pending the above.
CM will continue to follow to ensure a safe and timely dc.
[2024-09-21] MEDS: MILK OF MAGNESIA 30 ML PO (10:00)
[2024-09-21 11:26] VITALS: BP 112/80; BP 115/70; PULSE 117; O2SAT 94
[2024-09-21 15:26] VITALS: BP 135/77; BP 138/78; PULSE 89; O2SAT 96
[2024-09-21 16:23] VITALS: BP 130/67
[2024-09-21] MEDS: MAGNESIUM OXIDE 500 MG PO (16:44)
[2024-09-21] MEDS: NON-FORMULARY ITEM 2 UNIT INH (18:14)
[2024-09-21] MEDS: RESTORIL 30 MG PO (22:38)
[2024-09-21 23:15] VITALS: BP 118/63
[2024-09-22 07:40] VITALS: BP 107/59
[2024-09-22] MEDS: NON-FORMULARY ITEM 1 UNIT INH (08:23)
[2024-09-22] MEDS: LIDOCAINE 4% PATCH 1 PATCH TOPICAL (08:24)
[2024-09-22] MEDS: ISOPTIN 40 MG PO (08:25)
[2024-09-22] MEDS: ELIQUIS 2.5 MG PO (08:25)
[2024-09-22] MEDS: TYLENOL #3 1 TABLET PO (08:43)
--- NOTE | 2024-09-22 10:25 | CM ---
Addendum entered by Juanita Amaral RN 09/22/24 14:03:
Spoke with the patient's daughter via telephone. Provided wheelchair van # for payment.
Addendum entered by Juanita Amaral RN 09/22/24 13:35:
Plan: Discharge to [facility].
Call report to: [phone]
Fax report to: [phone]
Addendum entered by uJanita Amaral RN 09/22/24 12:23:
Auth obtained #[id number]; 09/22-09/28. Left vm for daughter to discuss transportation options.
Addendum entered by Juanita Amaral RN 09/22/24 11:10:
CM spoke with the patient at the bedside. IMM reviewed.
Original Note:
Reviewed the chart notes. Message left for [facility] Liaison with [facility] Munoz regarding bed availability. Auth will be required. CM continues to be available to patient/family and is monitoring medical plan for needs at discharge.
Plan: Discharge to SNF/rehab once bed secured and auth obtained.
--- NOTE | 2024-09-22 10:30 | W.PN.HOSP.TC ---
Today's Communication/Plan
-
dc
Assessment / Plan
Assessment / Plan
Physical Exam
General: No Apparent Distress
HEENT: PERRLA
Respiratory: Clear; No Wheezes
Cardiac: S1/S2 and Regular Rhythm
GI: Soft, Non Tender and Non Distended
Musculoskeletal: No Edema and clean dressing right thigh
Skin: Warm and Dry; No Rash
Neuro: AO x 3
Psych: Calm
Right Hip Fracture
s/p Right intertrochanteric hip fracture reduction and fixation with cephalomedullary nail by Dr Elkins on 09/18, no complications reported.
pt wants Tylenol with codeine and not Tylenol alone
-����� Regular diet,
-���� Eliquis
- WBAT RLE with use of walker for ambulatory assistance.
- Appreciate ortho help
-�����
# leukocytosis, reactive
Afebrile
Resolved
# Mild acute blood loss anemia post op
# constipation
resolved. No abdominal pain or distension.
#Atrial Flutter, paroxysmal
-����� Currently in NSR
-����� Patient self-decreased Eliquis dosing in evening given bruising.� Education provided on importance of stroke prevention and she is willing to take 2.5mg dosing post-op for DVT prevention
-����� resume Eliquis
-����� MEMBERSHIP ADVISOR Verapamil
-�����
#Anxiety
-MEMBERSHIP ADVISOR Temazepam qhs
-MEMBERSHIP ADVISOR Lorazepam PRN
# essential HTN
-MEMBERSHIP ADVISOR Verapamil
DVT PPx: Eliquis
code : pt would like to be full code
Total discharge time spent to see the patient, examine the patient, review data and lab results, discuss discharge plan with patient and nursing staff around 65 minutes
Anticipated Discharge: Today
Subjective/Interval History
-
Date of Service: September 22, 2024
No complaints
feels ready to go to rehab, wants to see medical case worker
Objective Data
-
Vital Signs:
Vital Signs
Temp Pulse Resp BP Pulse Ox
98.1 F 80 18 129/61 96
09/22/24 07:40 09/22/24 08:25 09/22/24 07:40 09/22/24 08:25 09/22/24 07:40
I&O
09/21/24 09/22/24 09/23/24
06:59 06:59 06:59
Intake Total 472 / 472 240 / 240 480 / 480
Output Total 100 / 100
Balance 372 / 372 240 / 240 480 / 480
--- NOTE | 2024-09-22 12:07 | PTCARENOTE ---
Pt insisting on having legs hanging unsupported in recliner chair. Pt educated several times on safety concerns as chair is not built to be left half up. Pt agitated and becoming verbally aggressive towards staff. Pt safety reinforced. Pt refused
teaching. Care ongoing.
[2024-09-22 15:00] VITALS: BP 128/67
--- NOTE | 2024-09-22 15:21 | W.DCSUMMARY ---
Discharge Summary
Discharge Data
Date of Admission: 09/17/24
Date of Discharge: 09/22/24
-
Pending Results: No
Hospital Course
84 years old female presented to the hospital after a fall. Patient was taking Eliquis for history of A-fib. Scan of the head did not show acute abnormalities. Scan of the cervical spine did not show fracture or dislocation. X-ray of the femur
showed intertrochanteric fracture. Orthopedic doctor evaluated the patient recommended surgical repair. Eliquis was held for washout. Patient underwent right intertrochanteric hip fracture reduction and fixation with cephalomedullary nail by Dr
Brittni on 09/18, no complications reported. Patient reported that Tylenol with codeine was the preferred pain medicine she wanted to use. Eliquis was resumed postoperatively. Patient remained hemodynamically stable. Patient was evaluated by
physical therapy and recommended [facility] facility placement. Patient was counseled to avoid self decreasing her Eliquis doses without talking to her sample dye mixer. Patient was discharged in a stable condition.
Discharge Plan
-
Patient Disposition: Skilled Nursing/SNF
Discharge Diagnosis/Procedures: s/p Right intertrochanteric hip fracture reduction and fixation with cephalomedullary nail by Dr Elkins on 09/18, no complications reported.
Diet: As tolerated
Referrals:
Lucie Casiano MD [Family Provider, Internal Medicine]
Pedro Elkins MD [Active, Orthopedics] - in two weeks
Prescriptions:
New
acetaminophen-codeine 300-30 mg Tablet
1 tab PO Q4HPRN PRN (Reason: mod to severe pain) Qty: 10 0RF
Eliquis 2.5 mg Tablet
2.5 mg PO BID Qty: 60 0RF
Continued
lorazepam 0.5 MG tablet
0.5 mg PO BIDPRN PRN (Reason: anxiety)
verapamil 40 mg Tablet
40 mg PO BID
temazepam 30 mg Capsule
30 mg PO HS
fluticasone propion-salmeterol [Advair HFA] 115-21 mcg/actuation Hfa Aerosol Inhaler
2 puff INHALATION R BID
PreserVision AREDS 2,148 mcg-113 mg-45 mg-17.4mg Tablet
1 tab PO DAILY
magnesium oxide 400 mg magnesium Tablet
400 mg PO QPM
Discontinued
Eliquis 2.5 mg Tablet
2.5 mg PO DAILY
Eliquis 2.5 mg Tablet
1.25 mg PO QPM
Discharge Orders:
Discharge Patient (As Directed); Ordered 09/21/24
Ordered By: Angelique Murrell
Discharge Date and Time
Print Language: MONGOLIAN
== END 2024-09-22 16:35 | DRG 481 ==
LOC: 2 SOUTH 15:57
PROVIDERS: Orthopaedic Surgery; Student in an Organized Health Care Education/Training Program; ADMITTING PHYSICIAN Student in an Organized Health Care Education/Training Program; ATTENDING PHYSICIAN Internal Medicine; EMERGENCY PHYSICIAN Emergency Medicine; FAMILY PHYSICIAN Internal Medicine; OTHER PHYSICIAN Physician Assistant Surgical
PROC: 0QS604Z Reposition Right Upper Femur with Internal Fixation Device, Open Approach (ICD-10-PCS; 2024-09-18)
DX: M80.051A Age-related osteoporosis with current pathological fracture, right femur, initial encounter for fracture (principal); D62 Acute posthemorrhagic anemia; I48.92 Unspecified atrial flutter; W19.XXXA Unspecified fall, initial encounter; I48.91 Unspecified atrial fibrillation; Z79.01 Long term (current) use of anticoagulants; F41.9 Anxiety disorder, unspecified; Z79.51 Long term (current) use of inhaled steroids; I10 Essential (primary) hypertension; J44.9 Chronic obstructive pulmonary disease, unspecified; Z66 Do not resuscitate; D72.829 Elevated white blood cell count, unspecified; K59.00 Constipation, unspecified; E78.00 Pure hypercholesterolemia, unspecified; F17.200 Nicotine dependence, unspecified, uncomplicated; Z92.3 Personal history of irradiation; M80.88XA Other osteoporosis with current pathological fracture, vertebra(e), initial encounter for fracture
CPT/HCPCS: 70450; 71045; 72125; 72192; 73502; 73552; 76000; 80048; 80053; 82550; 85014; 85018; 85025; 85027; 86850; 86900; 86901; 93005; 94640; 96374; 97110; 97163; 97167; 97530; 97535; 99285; C1713; C1769

== ENCOUNTER → 2024-09-26 11:45 | Outpatient (REF) | payer MEDICARE, SELFPAY ==
[2024-09-26 12:29] LABS: % Basophils 0.5 % (0-2); % Eosinophils 2.6 % (0-6); % Immature Granulocytes 1.6 % (0-0.5); % Lymphocytes 21.4 % (20.5-51.1); % Monocytes 12.3 % (1.7-9.3); % Neutrophils 61.6 % (42.2-75.2); Absolute Eosinophils 0.1 10^3/uL (0-0.7); Absolute Immature Granulocytes 0.1 10^3/uL (0-0.05); Absolute Lymphocytes 0.8 10^3/uL (1.2-3.4); Absolute Monocytes 0.5 10^3/uL (0.1-0.6); Absolute Neutrophils 2.4 10^3/uL (1.4-6.5); Hematocrit 25.5 % (37.0-47.0); Hemoglobin 8.4 g/dL (12.0-16.0); Mean Corp Hgb Conc. 32.9 g/dL (33.0-37.0); Mean Corpuscular Hgb 30.3 pg (27.0-31.0); Mean Corpuscular Volume 92.1 fL (81.0-99.0); Mean Platelet Volume 9.2 fL (7.4-10.4); Nucleated Red Blood Cells % 0 %; Platelet Count 300 10^3/uL (130-400); Red Blood Cell Count 2.77 10^6/uL (4.20-5.40); Red Cell Dist. Width 13.6 % (11.5-14.5); White Blood Cell Count 3.8 10^3/uL (4.8-10.8)
[2024-09-26 13:14] LABS: Blood Urea Nitrogen 11 mg/dl (7-17); Calcium 8.6 mg/dl (8.4-10.2); Carbon Dioxide 27 mmol/L (22-30); Chloride 105 mmol/L (98-107); Glucose 103 mg/dl (70-99); Potassium 3.9 mmol/L (3.5-5.1); Sodium 136 mmol/L (135-145); eGFR > 60.00
== END ==
LOC: OLABP 11:45
PROVIDERS: ATTENDING PHYSICIAN Family Medicine
DX: N39.0 Urinary tract infection, site not specified (principal); I48.91 Unspecified atrial fibrillation; J44.0 Chronic obstructive pulmonary disease with (acute) lower respiratory infection; E78.6 Lipoprotein deficiency; H25.9 Unspecified age-related cataract
CPT/HCPCS: 36415; 80048; 85025

== ENCOUNTER → 2024-10-03 11:12 | Outpatient (REF) | payer OTHER, MEDICARE, SELFPAY ==
[2024-10-03 12:04] LABS: Hematocrit 28.2 % (37.0-47.0); Hemoglobin 9.1 g/dL (12.0-16.0); Mean Corp Hgb Conc. 32.3 g/dL (33.0-37.0); Mean Corpuscular Hgb 30.5 pg (27.0-31.0); Mean Corpuscular Volume 94.6 fL (81.0-99.0); Mean Platelet Volume 8.8 fL (7.4-10.4); Platelet Count 411 10^3/uL (130-400); Red Blood Cell Count 2.98 10^6/uL (4.20-5.40); Red Cell Dist. Width 14.6 % (11.5-14.5); White Blood Cell Count 4.6 10^3/uL (4.8-10.8)
[2024-10-03 13:25] LABS: Magnesium 2.2 mg/dl (1.6-2.3)
== END ==
LOC: OLABP 11:12
PROVIDERS: ATTENDING PHYSICIAN Family Medicine
DX: N39.0 Urinary tract infection, site not specified (principal); I48.91 Unspecified atrial fibrillation; J44.0 Chronic obstructive pulmonary disease with (acute) lower respiratory infection; E78.6 Lipoprotein deficiency; H25.9 Unspecified age-related cataract
CPT/HCPCS: 36415; 83735; 85027

== ENCOUNTER → 2024-10-10 10:39 | Outpatient (REF) | payer OTHER, MEDICARE, SELFPAY ==
[2024-10-10 11:40] LABS: % Eosinophils 2.3 % (0-6); % Immature Granulocytes 0.5 % (0-0.5); % Monocytes 10.4 % (1.7-9.3); % Neutrophils 57.8 % (42.2-75.2); Absolute Eosinophils 0.1 10^3/uL (0-0.7); Absolute Lymphocytes 1.1 10^3/uL (1.2-3.4); Absolute Monocytes 0.4 10^3/uL (0.1-0.6); Absolute Neutrophils 2.3 10^3/uL (1.4-6.5); Hematocrit 30.8 % (37.0-47.0); Hemoglobin 10.1 g/dL (12.0-16.0); Mean Corp Hgb Conc. 32.8 g/dL (33.0-37.0); Mean Corpuscular Hgb 30.4 pg (27.0-31.0); Mean Corpuscular Volume 92.8 fL (81.0-99.0); Mean Platelet Volume 9.3 fL (7.4-10.4); Nucleated Red Blood Cells % 0 %; Platelet Count 286 10^3/uL (130-400); Red Blood Cell Count 3.32 10^6/uL (4.20-5.40); Red Cell Dist. Width 14.2 % (11.5-14.5)
== END ==
LOC: OLABP 10:39
PROVIDERS: ATTENDING PHYSICIAN Family Medicine
DX: J44.0 Chronic obstructive pulmonary disease with (acute) lower respiratory infection (principal); I48.91 Unspecified atrial fibrillation; N39.0 Urinary tract infection, site not specified; H25.9 Unspecified age-related cataract; E78.6 Lipoprotein deficiency
CPT/HCPCS: 36415; 85025

== ENCOUNTER → 2025-03-12 15:01 | Outpatient (REF) | payer MEDICARE, SELFPAY | LOC: RAD 15:01 | PROVIDERS: ATTENDING PHYSICIAN Internal Medicine | DX: M54.50 Low back pain, unspecified (principal); M54.6 Pain in thoracic spine | CPT/HCPCS: 72072; 72110 ==